=== PATIENT | male | born 1945 | race Caucasian/White ===

== ENCOUNTER 2018-11-30 19:51 | Emergency (ER) | payer OTHER ==
[~2018-11-30] VITALS: Ht 172.7 cm; Wt 70.1 kg
[2018-11-30 19:52] VITALS: Ht 172.7 cm; Wt 70.1 kg
[2018-11-30 20:30] LABS: BASOPHIL % 0.3 % (0-2); PLATELET COUNT 167 x10^3mcL (130-400)
[2018-11-30 20:42] LABS: CALCIUM 9.6 mg/dL (8.5-10.1); CARBON DIOXIDE 22.5 mmol/L (21-32); CHLORIDE SERUM 106 mmol/L (98-107); CREATININE SERUM 1.5 mg/dL (0.7-1.3); GLUCOSE SERUM 144 mg/dL (74-106); POTASSIUM SERUM 4.6 mmol/L (3.5-5.1); SODIUM SERUM 141 mmol/L (136-145)
[2018-11-30 20:47] LABS: ALBUMIN 3.5 g/dL (3.4-5.0); ALKALINE PHOSPHATASE 67 U/L (46-116); ALT/SGPT 46 U/L (16-63); AST/SGOT 26 U/L (15-37); BILIRUBIN TOTAL 1.1 mg/dL (0.20-1.00); TOTAL PROTEIN, SERUM 6.7 g/dL (6.4-8.2)
[2018-11-30 21:52] LABS: FREE T4 1.18 ng/dL (0.76-1.46)
[2018-11-30 23:22] LABS: microscopic required? YES; urine erythrocyte 1+ (NEGATIVE)
[2018-11-30 23:40] LABS: AMPHETAMINE QUAL UR NONE DETECTED (See below)
[2018-12-01 01:00] VITALS: BP 127/75
== END 2018-12-01 01:00 | disposition left against medical advice (07) ==
LOC: ED 19:51
PROVIDERS: Emergency Medicine
DX: R07.89 Other chest pain (principal); R55 Syncope and collapse; G89.29 Other chronic pain; M54.9 Dorsalgia, unspecified; M79.606 Pain in leg, unspecified; E11.22 Type 2 diabetes mellitus with diabetic chronic kidney disease; N18.3 Chronic kidney disease, stage 3 (moderate)
CPT/HCPCS: 83880; 84439; 85378; J7040; Q0092